=== PATIENT | female | born 1960 | race Caucasian/White ===

== ENCOUNTER 2020-02-18 00:16 | Emergency (ER) | payer OTHER, SELFPAY ==
--- NOTE | 2020-02-18 00:28 | ED_ITS ---
HPI - Skin/Abscess/Foreign Bdy General Chief complaint: Fever Stated complaint: infection on face Time Seen by Provider: 02/18/20 00:28 Source: patient and family Mode of arrival: Ambulatory Limitations: no limitations History of Present Illness HPI narrative: 59F never smoker with history of recent dental procedure presents with a few days of a painful left sided facial rash. She states she felt a burning, tingling sensation on the left side of her face followed by the development of clear blisters on a red base. She has a small region of involvement inside her lip, but otherwise no intraoral involvement. She has h pain or lesion inside her nose or ear and has no pain in her eye, vision change, or watering. She's had no fever or chills. She denies N/V/D Related Data Previous Rx's Medication Instructions Recorded prednisone 40 mg PO DAILY 7 Days tab 02/18/20 valacyclovir 1,000 mg PO TID 7 Days #21 tab 02/18/20 Allergies Allergy/AdvReac Type Severity Reaction Status Date / Time No Known Drug Allergies Allergy Verified 02/18/20 00:37 Review of Systems Constitutional Constitutional: Denies chills, Denies fatigue, Denies fever(s), Denies frequent falls, Denies lethargy and Denies weakness Eyes Eyes: Denies change in vision, Denies eye discharge, Denies irritation and Denies loss of vision ENT Ears, Nose, Mouth, and Throat: Denies change in voice, Denies dizziness, Denies neck pain, Denies sore throat and Denies throat swelling Cardiovascular Cardiovascular: Denies chest pain, Denies irregular heart rhythm, Denies lightheadedness, Denies palpitations, Denies dyspnea, Denies dyspnea on exertion and Denies orthopnea Respiratory Respiratory: Denies cough, Denies dyspnea, Denies dyspnea on exertion and Denies wheezing Gastrointestinal Gastrointestinal: Denies abdominal pain, Denies change in bowel habits, Denies diarrhea, Denies nausea and Denies vomiting Musculoskeletal Musculoskeletal: Denies neck pain and Denies numbness Integumentary/Breasts Skin/Breast: Denies pruritus, Denies erythema, Reports rash and Denies wounds Neurologic Neurologic: Denies behavioral changes, Denies confusion, Denies dizziness, Denies frequent falls, Denies loss of vision, Denies numbness and Denies weakness Psychiatric Psychiatric: Denies anxiety, Denies behavioral changes, Denies confusion, Denies depression, Denies homicidal ideation and Denies suicidal ideation Endocrine Endocrine: Denies fatigue, Denies flushing and Denies palpitations Hematologic/Lymphatic Hematologic/Lymphatic: Denies easy bruising Allergic/Immunologic Allergic/Immunologic: Denies urticaria, Denies throat swelling and Denies wheezing Patient History Social History Smoking Status: Never smoker Smoking Status: Never smoker alcohol intake frequency: 0-2 drinks per day Substance Use Type: does not use Exam Narrative Exam Narrative: GENERAL: [59 year old patient appears stated age. Well- nourished, well-developed patient, in mild distress. HEAD: Atraumatic. Normocephalic. EYES: Pupils equal round and reactive. Extraocular motions intact. No scleral icterus. No injection or drainage. ENT: No intranasal involvement Nose without bleeding, purulent drainage. Throat without erythema, tonsillar hypertrophy or exudate. Airway patent. NECK: Trachea midline. Non tender CARDIOVASCULAR: Regular rate and rhythm without murmurs, gallops, or rubs. RESPIRATORY: Clear to auscultation. Breath sounds equal bilaterally. No wheezes, rales, or rhonchi. GASTROINTESTINAL: Abdomen soft, non-tender, nondistended. EXTREMITIES: No edema or joint tenderness. BACK: Nontender without deformity or crepitance. No flank tenderness. NEURO: AOx3. SKIN: Multiple clear fluid-filled blisters on an erythematous base extending from just anterior to the left ear along the mandible stopping abruptly at the midline. Initial Vital Signs Initial Vital Signs: Vital Signs Temperature 98.8 F 02/18/20 00:31 Pulse Rate 80 02/18/20 00:31 Respiratory Rate 18 02/18/20 00:31 Blood Pressure 165/78 H 02/18/20 00:31 Pulse Oximetry 96 02/18/20 00:31 Course Orders Ordered: Discontinued Medications Prednisone (Deltasone) 40 mg PO NOW ONE Stop: 02/18/20 00:53 Last Admin: 02/18/20 01:04 Dose: 40 mg Documented by: NESHA Vital Signs Vital signs: Vital Signs - 8 hr 02/18/20 00:31 Temperature 98.8 F Pulse Rate 80 Respiratory Rate 18 Blood Pressure 165/78 H Pulse Oximetry 96 MDM - Skin/Abscess/Foreign Bdy MDM Narrative Medical decision making narrative: Patient developed painful, itchy, tingling sensation along left side of face followed by presentation of clear blisters on red skin. Very consistent with shingles. Lesions within single dermatome and do not cross midline. Patient had chicken pox as an adult, no prior eruptions. No ocular involvement. Return precautions given. Questions answered to her apparent satisfaction. Discharge Plan Departure Patient Disposition: Home Clinical Impression: Shingles Qualifiers: Herpes zoster complications: without complications Qualified Code(s): B02.9 - Zoster without complications Discharge Date/Time: 02/18/20 01:15 Instructions: DI for Shingles Activity Restrictions/Additional Instructions: *You have been diagnosed with [painful rash on face, likely due to shingles] *What to do: *Take medications as directed *Follow up with your primary care provider in 2-3 days, call for an appointment. Let them know you were seen in the Emergency Department and that we ask that you be seen in follow up *Return to ER if you should have any new, worsening or concerning symptoms Prescriptions: New valacyclovir 1 gram tablet 1,000 mg PO TID 7 Days Qty: 21 RF: 0 prednisone 20 mg tablet 40 mg PO DAILY 7 Days RF: 0
[2020-02-18 00:31] VITALS: BP 165/78; PULSE 80; RESP 18; TEMP 37.1; O2SAT 96; BMI 32.3
[2020-02-18] MEDS: predniSONE 20 MG TABLET 40 MG PO (01:04)
== END 2020-02-18 01:15 | disposition home or self-care (01) ==
PROVIDERS: Emergency Provider Emergency Medicine
DX: B02.9 Zoster without complications (principal)
CPT/HCPCS: 99283